=== PATIENT | female | born 1980 | race Two or more races ===

== ENCOUNTER 2016-12-01 05:04 | Day surgery (SDC) | payer OTHER ==
[2016-11-29 15:29] VITALS: BMI 37.5
[~2016-12-01 05:04] MED LIST: BUPIVACAINE HCL/PF 0.5% (5MG/ML) 10 ML VIAL IJ ONE; LIDOCAINE 1%/EPI 1:100000 (50 ML MULTI DOSE VIAL) INF ONE
[2016-12-01] MEDS ORDERED: BUPIVACAINE HCL/PF 0.5% (5MG/ML) 10 ML VIAL ONE (07:29)
[2016-12-01] MEDS ORDERED: LIDOCAINE 1%/EPI 1:100000 (50 ML MULTI DOSE VIAL) ONE (07:29)
--- NOTE | 2016-12-01 08:00 | HP ---
[facility] - Chief Complaint Chief Complaint: left knee pain - Past Medical History Allergies/Adverse Reactions: Allergies Allergy/AdvReac Type Severity Reaction Status Date / Time No Known Allergies Allergy Verified 10/01/16 17:20 ...LMP: 11/25/16 - Current Medications Current Medications: Medication Instructions Recorded Oxycodone HCl/Acetaminophen 1 - 2 tab PO Q6H #50 tab MDD 8 12/01/16 [Percocet 5-325 mg Tablet -] [facility] Physical Exam - Physical Examination General Appearance: Well Nourished, Well Developed, Alert & Oriented x3 ENT: Clear Lung: Normal air movement Heart: Regular rate & rhythm Extremities: Other (left knee- + swelling, + ttp, decr rom, + mcmurrays, nvi MRI + mmt) Neurological: Intact, Alert, Oriented [facility] Impression/Plan - Impression/Plan Impression: left knee internal derangement Operative Procedure: left knee arthroscopy Date to be Performed: 12/01/16
[2016-12-01] MEDS ORDERED: MIDAZOLAM HCL 2 MG/2 ML SINGLE DOSE VIAL ONE (09:27)
[2016-12-01] MEDS ORDERED: LIDOCAINE HCL 2% (20ML MULTI-DOSE VIAL) NR ONE (09:29)
[2016-12-01] MEDS ORDERED: PROPOFOL 20 ML ONE ×2 (09:29→09:33)
[2016-12-01] MEDS ORDERED: DEXAMETHASONE SOD PHOSPHATE 4 MG/1 ML VIAL ONE (09:46)
[2016-12-01] MEDS ORDERED: IBUPROFEN 800 MG/8 ML IJ IVPB PRN (10:06)
[2016-12-01] MEDS ORDERED: ONDANSETRON 4 MG/2 ML VIAL IVPUSH PRN (10:06)
[2016-12-01] MEDS ORDERED: oxyCODONE HCL 5 MG TABLET PO PRN (10:06)
[2016-12-01] MEDS ORDERED: ACETAMINOPHEN 1000 MG/100 ML VIAL (NON FORMULARY) IVPB ONE (10:07)
--- NOTE | 2016-12-01 10:12 | OP ---
Operative Note - Note: Operative Date: 12/01/16 Pre-Operative Diagnosis: internal derangement left knee Operation: arthroscopy left knee with chondroplasty MFC and trochlea/patella Post-Operative Diagnosis: Same as Pre-op Surgeon: Cleveland Foster Anesthesia: General Estimated Blood Loss (mls): 0
[2016-12-01 11:16] VITALS: TEMP 98.1
[2016-12-01] MEDS ORDERED: oxyCODONE HCL 5 MG TABLET ONE (12:45)
[2016-12-01 14:55] VITALS: BP 127/74; PULSE 84
--- NOTE | 2016-12-02 06:02 | OP ---
DATE OF OPERATION: 12/01/2016 PREOPERATIVE DIAGNOSIS: Internal derangement, left knee. POSTOPERATIVE DIAGNOSIS: Internal derangement, left knee. PROCEDURE: Arthroscopy, left knee, with chondroplasty of the medial femoral condyle, trochlea, and patella. SURGICAL ATTENDING: Cleveland Foster MD ANESTHESIA: General with LMA. CLOSURE: Nylon 4-0. COMPLICATIONS: None. CONDITION: To recovery room in stable condition. DESCRIPTION OF OPERATIVE PROCEDURE: Patient taken to the operating room on December 01, 2016. General anesthesia with LMA was administered by the anesthesiologist. The left lower extremity was prepped and draped in the usual sterile fashion. Superolateral and mediolateral infrapatellar portal sites were infiltrated with 1% Xylocaine with epinephrine. Superolateral portal was made with a 15 blade followed by a blunt trocar. The knee was aspirated and inflated with a cocktail of 10 mL of 1% Xylocaine, 10 mL of 0.5% Marcaine, and 20 mL of arthroscopic saline. The mediolateral infrapatellar portal site was made with a 15 blade followed by a blunt trocar. Scope was placed in the lateral infrapatellar portal and up into the suprapatellar pouch. Pouch was visualized to be clean. The medial and lateral gutters were visualized to be clean. The undersurface of the patella had some "crabmeat" which was debrided using the shaver. This was centrally and at the apex of the patella. The apex of the trochlea closer to the notch also had some grade 3 changes. This was debrided back to smooth stable articular cartilage using the arthroscopic shaver. The rest of the trochlea and patella were found to be intact. With valgus stress on the knee, the medial compartment was entered. Medial meniscus was visualized, probed, and found to be intact. Medial femoral condyle had a grade 3 lesion at about 30 to 45 degrees. That was also debrided back to smooth and stable meniscal articular cartilage using the arthroscopic shaver. The medial tibial plateau was found to be intact. In the figure-4 position, the lateral compartment was entered. Lateral meniscus was visualized, probed, and found to be intact. Lateral femoral condyle was run and found to be intact as was the lateral tibial plateau. At 90 degrees, the ACL and PCL were visualized and probed and found to be intact. The knee was irrigated with copious amounts of irrigation. Portals were closed with 4-0 nylon. Prior to closure, 20 mL of 0.5% Marcaine was infused through the outflow portal for postoperative analgesia. Sterile pressure dressing was placed on the knee. Patient awakened from anesthesia and transferred to the recovery room in stable condition. No complications. Estimated blood loss negligible. Mackenzie [id number]
--- NOTE | 2016-12-04 12:51 | PATH ---
Surgical Pathology Report Patient Name: [facility]. Rec. #: [id number] /Age/Gender: 1980 (Age: 36) / F Account: [id number] Location: [facility] SURGICAL Taken: 12/01/2016 Received: 12/01/2016 Reported: 12/04/2016 Physicians: Cleveland Foster M.D. Specimen(s) Received SHAVINGS LEFT KNEE Clinical History Left knee torn meniscus Final Diagnosis SOFT TISSUE, LEFT KNEE, ARTHROSCOPIC SHAVINGS: SYNOVIUM WITH MILD CHRONIC INFLAMMATION; FIBROCARTILAGE WITH MYXOHYALINE DEGENERATION. Electronically Signed Scott Rice M.D. Gross Description Received in formalin, labeled "left knee shavings" is a 2.5 x 2.0 x 0.3 cm aggregate of sainz-yellow soft tissue fragments. A high school admissions representative portion is submitted in one cassette. /12/01/201612/01/2016
== END 2016-12-01 13:20 | disposition home or self-care (01) ==
LOC: JASU-SURG 05:04
PROVIDERS: ATTEND Orthopaedic Surgery
PROC: 0SBD4ZZ Excision of Left Knee Joint, Percutaneous Endoscopic Approach (ICD-10-PCS; principal; 2016-12-01 09:30)
DX: M23.92 Unspecified internal derangement of left knee (principal)
CPT/HCPCS: 88304-TC; 94760

== ENCOUNTER 2022-08-20 09:27 | Emergency (ER) | payer OTHER ==
[2022-08-20 09:31] VITALS: BP 146/61; PULSE 89; RESP 18; TEMP 98.5; BMI 37.0
[2022-08-20] MEDS ORDERED: KETOROLAC TROMETHAMINE 30 MG/1 ML VIAL IM ONE (09:54)
[2022-08-20] MEDS ORDERED: METHOCARBAMOL 500 MG TABLET PO ONE (09:54)
[2022-08-20] MEDS ORDERED: LIDOCAINE 5% TOPICAL PATCH TP ONE (09:54)
[2022-08-20] MEDS ORDERED: LIDOCAINE 5% TOPICAL PATCH ONE (11:13)
[2022-08-20] MEDS ORDERED: KETOROLAC TROMETHAMINE 30 MG/1 ML VIAL ONE (11:14)
[2022-08-20] MEDS ORDERED: METHOCARBAMOL 500 MG TABLET ONE (11:14)
== END 2022-08-20 10:20 | disposition home or self-care (01) ==
LOC: JER 09:27 → JERFT 09:27
PROC: 3E0233Z Introduction of Anti-inflammatory into Muscle, Percutaneous Approach (ICD-10-PCS; principal; 2022-08-20)
DX: S39.012A Strain of muscle, fascia and tendon of lower back, initial encounter (principal)
CPT/HCPCS: 99283-25

== ENCOUNTER 2022-10-29 21:35 | Emergency (ER) | payer OTHER ==
[2022-10-29 21:52] VITALS: BP 118/66; PULSE 86; RESP 20; TEMP 98; BMI 39.4
[2022-10-29] MEDS ORDERED: IBUPROFEN 600 MG TABLET (FP) PO ONE ×2 (22:32→22:50)
== END 2022-10-30 00:36 | disposition home or self-care (01) ==
LOC: JER 21:35
DX: R51.9 Headache, unspecified (principal); R05.1 Acute cough; J02.9 Acute pharyngitis, unspecified; R11.0 Nausea
CPT/HCPCS: 0241U-QW; 99283-25

== ENCOUNTER 2023-07-10 13:03 | Emergency (ER) | payer OTHER ==
[2023-07-10 13:15] VITALS: BP 140/86; PULSE 86; RESP 18; TEMP 98.6; BMI 37.3
[2023-07-10] MEDS ORDERED: IBUPROFEN 400 MG TABLET (FP) PO ONE ×2 (14:01→14:08)
[2023-07-10 15:49] LABS: THROAT:GRP A STREP NOT DETECTED (NOTDETECTED)
== END 2023-07-10 17:30 | disposition home or self-care (01) ==
LOC: JERFT 13:03
DX: R05.9 Cough, unspecified (principal); R07.0 Pain in throat; J40 Bronchitis, not specified as acute or chronic; J06.9 Acute upper respiratory infection, unspecified; B97.89 Other viral agents as the cause of diseases classified elsewhere; Z20.822 Contact with and (suspected) exposure to COVID-19
CPT/HCPCS: 0241U-QW; 71046-TC-FY; 87651; 99284-25

== ENCOUNTER 2023-07-20 08:57 | Emergency (ER) | payer OTHER ==
[2023-07-20 09:01] VITALS: BP 142/82; PULSE 84; RESP 22; TEMP 98.6; BMI 41.3
[2023-07-20] MEDS ORDERED: ALBUTEROL SO4 0.083% IH SOL 2.5 MG/3 ML VIAL.NEB. NEB ONE ×4 (09:18→10:04)
[2023-07-20] MEDS ORDERED: DEXAMETHASONE SOD PHOSPHATE 10 MG/1 ML VIAL IVPUSH ONE (10:01)
[2023-07-20] MEDS ORDERED: DEXAMETHASONE SOD PHOSPHATE 10 MG/1 ML VIAL ONE (10:03)
[2023-07-20] MEDS ORDERED: DEXTROMETHORPHAN/PROMETHAZINE 15 MG/6.25 MG/5 ML SYRUP PO ONE (11:01)
== END 2023-07-20 11:28 | disposition home or self-care (01) ==
LOC: JER 08:57 → JERFT 08:57
PROC: 3E033GC Introduction of Other Therapeutic Substance into Peripheral Vein, Percutaneous Approach (ICD-10-PCS; principal; 2023-07-20)
PROC: 3E0F7GC Introduction of Other Therapeutic Substance into Respiratory Tract, Via Natural or Artificial Opening (ICD-10-PCS; 2023-07-20)
DX: R05.9 Cough, unspecified (principal); R09.89 Other specified symptoms and signs involving the circulatory and respiratory systems; J20.9 Acute bronchitis, unspecified; Z20.822 Contact with and (suspected) exposure to COVID-19
CPT/HCPCS: 0241U-QW; 71046-TC-FY; 99284-25; J1100